=== PATIENT | female | born 1950 | race Caucasian/White ===

== ENCOUNTER 2024-11-15 10:24 | Outpatient (REF) | payer MEDICARE, SELFPAY ==
--- OUTSIDE RECORDS SUMMARY | 2024-11-15 11:50 | XMS_ITS | Encounter Summary ---
Author Organization [facility] Address [address] [place] [address] Care Team Providers Care Nurse Midwife Name Role Phone Unavailable Primary Care Provider Unavailabl e Reason for Visit * Reason Onset Date Comments Chart Prep 11/14/2024 Encounter Details Date Type Department Care Team (Late st Contact Info) Description 11/14/[address] [facility] [address] [place] [address] Sandy Mcguire MA Chart Prep Social History Tobacco Use Types Packs/Day Years Used Date Smoking Tobacco: Never Assessed Comments Unknown Sex and Gender Information Value Date Recorded Sex Assigned at Female 08/23/2024 11:52 AM EST Legal Sex Female 11:52 AM EST Gender Identity Female 08/23/2024 11:52 AM EST Sexual Orientation Don't know 11/14/2024 11 :01 AM EDT documented as of this encounter Miscellaneous Notes * Telephone Encounter - Sandy Mcguire MA - 11/14/2024 4:19 PM EDT Chart Prep Labs: not applicable Images: not applicable Vaccines due: yes Referrals: not applicable Screenings: not applicable Overdue care gaps: SBIRT, SDOH, PHQ-9, Oral health screening, Disability screen, and Tobacco documented in this encounter Plan of Treatment Upcoming Encounters Date Type Department Care Team (Late st Contact Info) Description 11/22/2024 2:00 PM EDT Clinical Support [facility] [address] [place] [address] documented as of this encounter Visit Diagnoses Not on filedocumented in this encounter
--- OUTSIDE RECORDS SUMMARY | 2024-11-15 11:50 | XMS_ITS | Clinical Summary ---
Author Organization [facility] [address] [place] [address] [place] [phone] Phone Care Team Providers Care Manager Of Employee Relations Name Role Phone Yonatan De Guzman MD Primary Care Provider [phone] Allergies Active Allergy Reactions Criticality Noted Date Comments Lisinopril 11/11/2009 Severe cough Nsaids (Non-Steroidal Anti-Inflammatory Drug) GI intolerance 01/26/2018 Medications albuterol HFA (PROAIR HFA ; PROVENTIL HFA ; VENTOLIN HFA) 90 mcg/actuation inhaler Inhale 1-2 Puffs into the lungs every 4 hours as needed for Cough, Wheezing or Shortness of Breath. 3 Active atorvastatin (LIPITOR) 20 mg tablet Take 1 tablet (20 mg total) by mouth 1 (one) time each day. 4 Active biotin-silicon qzkp-F-gxjzrffg 3,000 mcg -100 mg-50 mg tablet extended release Take 1 tablet by mouth 1 (one) time each day. Active calcium carbonate/vitamin D3 (CALCIUM 600 WITH VITAMIN D3 ORAL) Take 1 tablet by mouth 2 (two) times a day. Calcium Carb-Cholecalc iferol (Calcium 600/Vitamin D3) 600-20 MG-MCG Tab 0 09/24/2022 Sig - Route: Take 1 Tablet by mouth 2 times daily. - Oral Class: Historic 3 Active DULoxetine (CYMBALTA) [address] capsule Take 1 capsule (60 mg total) by mouth 1 (one) time each day. 4 Active losartan (COZAAR) 100 mg tablet Take 1 Tablet by mouth at bedtime. 4 Active hydrOXYzine HCL (ATARAX) 25 mg tablet Take 1 tablet (25 mg total) by mouth 3 (three) times a day if needed for anxiety. Active levothyroxine (SYNTHROID, LEVOTHROID) 100 mcg tablet TAKE 1 TABLET BY MOUTH EVERY DAY 90 tablet 1 5 Active amLODIPine (NORVASC) 10 mg tabletIndications :Essential (primary) hypertension TAKE 1 TABLET BY MOUTH EVERY DAY 90 tablet 5 Active atorvastatin (LIPITOR) 10 mg tablet TAKE 1 TABLET BY MOUTH EVERYDAY AT BEDTIME 90 tablet 5 Active Active Problems Problem Noted Date Diagnosed Date Diverticulosis 05/16/2024 IBS (irritable bowel syndrome) 05/16/2024 CKD (chronic kidney disease) stage 3, GFR 30-59 ml/min 02/07/2021 Obesity (BMI 30.0-34.9) 02/22/2020 Pulmonary nodule 11/03/2017 Overview (05/16/2024): CT Chest 12/06/17 done through [facility] showed stable nodules. F/u 1 year. Hypercholesteremia 06/21/2016 Overview (05/16/2024): - Has been intolerant to multiple different statins in the past - At her last visit with me in November 2021, we attempted a trial of low-dose Crestor 2.5 mg every other day- at some point, she stopped this - More recently, her primary started her on atorvastatin 10 mg which she appears to be tolerating - Ultimately, myalgias could be related to fibromyalgia which she has had for many years Last Assessment & Plan: Poorly controlled lipids by lipid panel in August of this year; thankfully she has been tolerating atorvastatin 10 mg; I have taken the liberty of increasing it further to 20 mg, will try to get her up to the highest dose tolerated capping at 80 mg if possible, she has a follow-up with her primary in February, I have given her a prescription for the 20 mg pill to get her through to this appointment-at that point, would consider increasing to 40 if tolerated by the patient, would repeat fasting lipid profile 2 to 3 months after the maximally tolerated statin dose Prediabetes 06/15/2016 Paraseptal emphysema 02/15/2015 Depression 01/29/2014 Osteopenia 08/15/2013 Overview (05/16/2024): T score -2.1 2013, no Rx Female cystocele 07/12/2013 Hearing loss 02/03/2013 Rotator cuff tendinitis 07/07/2012 Obstructive sleep apnea 12/05/2008 Overview (05/16/2024): NOT TREATED Essential hypertension, benign 05/25/2008 Overview (05/16/2024): Last Assessment & Plan: Suboptimally controlled in the office today, given that I increased her statin however I did not want to make too many medication changes, would consider adding an antihypertensive agent, as she is maxed out on both amlodipine and losartan, if still elevated at her next appointment with her PCP; I encouraged her to observe a low-sodium diet-less than 2000 mg daily, I also encouraged her to keep track of her blood pressures no more than 2-3 times a week in a resting state over the next several months and bring a log of these blood pressures to her next PCP appointment in February Fibromyalgia 03/09/2008 Overview (05/16/2024): Onset ~ 2005 Hypothyroid 03/09/2008 Immunizations Name Administration Dates Next Due Influenza trivalent, 0.5mL ( Fluzone High-dose) 65yo and older 06/19/2022,04/15/2021,05/07/2020,2018,05/09/2018,05/17/2017,04/20/2016,1 08/30/2012,08/18/2012 Influenza, Unspecified 05/09/2016 Moderna Covid-19 Bivalent, O riginal + Ba.1 (Non-US Tradename Spikevax Bivalent) 06/19/2022 Moderna SARS-CoV-2 COVID-19, mRNA, LNP-S, preservative free 07/11/2021 Pneumococcal conjugate 13 va lent (Prevnar 13, PCV13) 2mo and older 08/20/2021 Pneumococcal conjugate 20 va lent (Prevnar 20, PCV 20) 2mo and older 05/05/2023 Td Tetanus diptheria (Tdvax) 7yo and older 08/20/2021 Tdap Tetanus diptheria acell ular pertussis (Boostrix; Adacel) 7yo and older 03/01/2008 Zoster recombinant (Shingrix ) 19yo and older 07/30/2021 Surgical History Surgery Date Site/Laterality Comments HYSTERECTOMY 1998 PROCEDURE: HISTORICAL VAGINAL HYSTERECTOMY W/O BSO; COMMENT: fibroids ROTATOR CUFF REPAIR PROCEDURE: HISTORICAL ROTATOR CUFF REPAIR; COMMENT: right - surgery - 2011 OTHER SURGICAL HISTORY 04/17/2016 PROCEDURE: COLONOSCOPY, REMOVE LESION BREAST BIOPSY Bilateral PROCEDURE: BX BREAST; PERC NEEDLE CORE W/IMAG GUID; COMMENT: b9 BREAST SURGERY Left PROCEDURE: CO UNLISTED PROCEDURE BREAST; COMMENT: b9 14 yrs old Medical History Medical History Date Comments Fibromyalgia DX:Fibromyalgia Hypothyroid DX:Hypothyroid IBS (irritable bowel syndrome) D X:IBS (irritable bowel syndrome) Diverticulosis DX:Diverticulosi s Sleep apnea 12/05/2008 DX:Sleep apnea Hearing loss 02/03/2013 DX:Hearing loss Paraseptal emphysema (CMS/HCC) 02/15/2015 D X:Paraseptal emphysema (HCC) Family History Medical History Relation Name Comments No Known Problems Mother of co mplications of gangrene of the foot, not much known prior Thyroid disease Son Breast cancer Neg Hx Colon cancer Neg Hx Ovarian cancer Neg Hx Relation Name Status Comments Mother Son Alive Social History Tobacco Use Types Packs/Day Years Used Date Smoking Tobacco: Former Cigarettes 1 41.4 0 1962 - 08/09/2003 Smokeless Tobacco: Never Alcohol Use Standard Drinks/Week Comments Yes 0 (1 standard drink = 0.6 oz pur e alcohol) Comments Unknown Sex and Gender Information Value Date Recorded Sex Assigned at Not on file Legal Sex Female 5:39 AM EST Gender Identity Not on file Sexual Orientation Not on file Obstetrics History Last Filed Vital Signs Vital Sign Reading Time Taken Comments Blood Pressure 140/58 03/30/2024 4:45 PM EDT Pulse 70 03/28/2024 3:26 PM EDT Temperature - - Respiratory Rate - - Oxygen Saturation - - Inhaled Oxygen Concentration - - Weight 77.3 kg (170 lb 8 oz) 03/28/2024 3:26 PM EDT Height 157.5 cm (5' 2 ) 03/28/2024 3:26 PM EDT Body Mass Index 31.18 03/28/2024 3:26 PM EDT Plan of Treatment Upcoming Encounters Date Type Department Care Team (Late st Contact Info) Description 04/25/2025 3:00 PM EDT Appointment Radiology Department - [address] [phone] Health Maintenance Due Date Last Done Comments Depression Screening 07/18/2022 Falls Risk Assessment 07/18/2022 Medicare Annual Wellness Visit 07/18/2022 Social Influencers of Health Screening 07/18/2022 RSV Immunization Adult Patients (1 - 1-dose 75+ series) 2023 COVID-19 Vaccine ( season) 2024 06/19/2022, 07/11/2021, 12/31/2020, Additional history exists Hypertension/CHF/CAD Annual BMP Blood Test 03/07/2025 03/07/2024, 03/07/2024 Influenza Vaccine (Season Ended) 2025 06/19/2022, 04/15/2021, 05/07/2020, Additional history exists Cholesterol Screening (Lipid Panel) 03/07/2029 03/07/2024, 03/07/2024 Osteoporosis Screening (Bone Density Screening) 03/17/2031 03/17/2021, 05/04/2018 DTaP,Tdap,and Td Vaccines (3 - Td or Tdap) 08/20/2031 08/20/2021, 03/01/2008 Colorectal Cancer Screening: Colonoscopy 12/11/2031 12/10/2021 Hepatitis C Screening Completed 06/18/2016 Zoster Vaccines Completed 07/30/2021, 05/16/2021 Pneumococcal Vaccine: 50+ Years Completed 05/05/2023, 08/20/2021 Breast Cancer Screening Discontinued 05/04/20, 05/04/2024, 04/27/2024, Additional history exists HIB Vaccines Aged Out No longer eligi ble based on patient's age to complete this topic HPV Vaccines Aged Out No longer eligi ble based on patient's age to complete this topic Hepatitis A Vaccines Aged Out No long er eligible based on patient's age to complete this topic Hepatitis B Vaccines Aged Out No long er eligible based on patient's age to complete this topic IPV Vaccines Aged Out No longer eligi ble based on patient's age to complete this topic MMR Vaccines Aged Out No longer eligi ble based on patient's age to complete this topic Meningococcal ACWY Vaccine Aged Out N o longer eligible based on patient's age to complete this topic Meningococcal B Vaccine Aged Out No l onger eligible based on patient's age to complete this topic RSV Immunization Patients Under 20 months Aged Out No longer eligible based on patient's age to complete this topic Varicella Vaccines Aged Out No longer eligible based on patient's age to complete this topic Procedures Procedure Name Priority Date/Time Associated Diagnosis Comments DX MAMMO INCL CAD UNI Routine 05/04/2024 12:10 PM EDT Other abnormal and inconclusive findings on diagnostic imaging of breast ANNUAL BMP BLOOD TEST Routine 03/07/2024 LIPID PANEL Routine 03/07/2024 COLONOSCOPY Routine 12/10/2021 DXA BONE DENSITY STUDY 1+ SITS AXIAL SKEL Routine 03/17/2021 2:49 PM EDT Other specified disorders of bone density and structure, unspecified site HEPATITIS C SCREENING Routine 06/18/2016 from Last 3 Months or Most Recently Relevant to Health Maintenance Results * DX MAMMO INCL CAD UNI (05/04/2024 12:10 PM EDT) Anatomical Region Laterality Modality Mammography 04/27/2024 3:08 PM EDT Narrative 05/04/2024 1:31 PM EDT This is a summary report. The complete report is available in the patient's medical record. If you cannot access the medical record, please contact the sending organization for a detailed fax or copy. Please refer to the combined ultrasound-guided core biopsy and diagnostic mammogram report. Procedure Note Jovana Torres MD - 05/24/2024 This is a summary report. The complete report is available in thepatient's medical record. If you cannot access the medical record, pleasecontact the sending organization for a detailed fax or copy. Please refer to the combined ultrasound-guided core biopsy and diagnosticmammogram report. Yonatan De Guzman MD IMG BI PROCEDURES Final Result * Annual BMP Blood Test (03/07/2024) [facility] Annual BMP Blood Test abstracted Historical Provider [facility] Final Result * (ABNORMAL) Lipid panel (03/07/2024) [facility] LDL/HDL Ratio 4 0 - 4 Triglycerides 89 0 - 150 mg/dL Cholesterol 364(A) 0 - 200 mg/dL HDL 100 >=40 mg/dL LDL Cholesterol 247(A) 0 - 100 mg/dL Blood Venous blood specimen / Unknown Result [facility] Historical Provider LAB BLOOD ORDERABLES Mery l Result * Colonoscopy (12/10/2021) [facility] Colonoscopy abnormal, abstracted Anatomical Region Laterality Modality Other Result [facility] Provider [facility] Final Result * DXA BONE DENSITY STUDY 1+ SITS AXIAL SKEL (03/17/2021 2:49 PM EDT) Anatomical Region Laterality Modality Bone Densitometr y 05/14/2020 9:56 AM EDT Narrative 03/17/2021 7:14 PM EDT BONE DENSITY SCAN (DEXA): FINDINGS: Lumbar Spine T-score is -2.1. ?? (SD relative to 20-29 y/o adult) Z-score is 0.2. ??(SD relative to age matched peers) This is considered osteopenia by WHO criteria. Left Hip T-score is -0.9. Z-score is 1.1. This is considered normal by WHO criteria. Comparison exam(s): 05/04/2018 and 08/14/2013. Lumbar spine: 5.0% increase in bone mineral density compared with 2018, statistically significant at the 95% confidence level. ??No statistically significant change compared with the baseline exam. Left hip: No statistically significant change in bone mineral density compared with prior exams. IMPRESSION: IMPRESSION: Osteopenia by WHO criteria. This patient has a 13% risk of major osteoporotic fracture and a 1.8% risk of hip fracture over the next 10 years. (World Health Organization Fracture Risk Assessment) [facility] Department of Internal Medicine recommends using National Osteoporosis Foundation (NOF) guidelines in treatment decisions related to osteoporosis. NOF guidelines suggest considering treatment for postmenopausal women and men aged 50 or older presenting with the following: History of hip or vertebral fracture. T-score = -2.5 (DXA) at the femoral neck, total hip, or spine, after appropriate evaluation to exclude secondary causes. Low bone mass (T-score between -1.0 and -2.5 at the femoral neck or spine) AND a 10-year probability of a hip fracture = 3% OR a 10-year probability of a major osteoporosis-related fracture = 20% based on the [place]-adapted WHO algorithm Please note that all treatment decisions require clinical judgment and consideration of individual patient factors, including patient preferences, co-morbidities, previous drug use, risk factors not captured in the model (e.g., frailty, falls, vitamin D deficiency, increased bone turnover, interval significant decline in bone density) and possible under- or over-estimation of fracture risk by FRAX. Optional alternative screening schedule based on candido Guzmán., [facility] August 27, 2011 for patients with osteopenia (based on hip BMD T-score) is as follows: * ??advanced osteopenia (T scores -2.00 to -2.49), BMD testing every year * ??moderate osteopenia (T scores -1.50 to -1.99), BMD testing every 5 years mild osteopenia or normal BMD (T scores -1.50 and higher), BMD testing every 15 years Procedure Note Jovana Torres MD - 07/28/2022 BONE DENSITY SCAN (DEXA): FINDINGS: Lumbar Spine T-score is -2.1. (SD relative to 20-29 y/o adult) Z-score is 0.2. (SD relative to age matched peers) This is considered osteopenia by WHO criteria. Left Hip T-score is -0.9. Z-score is 1.1. This is considered normal by WHO criteria. Comparison exam(s): 05/04/2018 and 08/14/2013. Lumbar spine: 5.0% increase in bone mineral density compared with 2018,statistically significant at the 95% confidence level. No statistically significantchange compared with the baseline exam. Left hip: No statistically significant change in bone mineral densitycompared with prior exams. IMPRESSION: IMPRESSION: Osteopenia by WHO criteria. This patient has a 13% risk of majorosteoporotic fracture and a 1.8% risk of hip fracture over the next 10 years. (World HealthOrganization Fracture Risk Assessment) [facility] Department of Internal Medicine recommends usingUnc Health Pardeeional Osteoporosis Foundation (NOF) guidelines in treatment decisions related toosteoporosis. NOF guidelines suggest considering treatment for postmenopausal women and men aged 50 orolder presenting with the following: History of hip or vertebral fracture. T-score = -2.5 (DXA) at the femoral neck, total hip, or spine, afterappropriate evaluation to exclude secondary causes. Low bone mass (T-score between -1.0 and -2.5 at the femoral neck or spine)AND a 10-year probability of a hip fracture = 3% OR a 10-year probability of a majorosteoporosis-related fracture = 20% based on the [place]-adapted WHO algorithm Please note that all treatment decisions require clinical judgment andconsideration of individual patient factors, including patient preferences, co- morbidities,previous drug use, risk factors not captured in the model (e.g., frailty, falls, vitamin Ddeficiency, increased bone turnover, interval significant decline in bone density) and possibleunder- or over-estimation of fracture risk by FRAX. Optional alternative screening schedule based on kenji Guzmán al., NEJMJanuary 2011 for patients with osteopenia (based on hip BMD T-score) is as follows: * advanced osteopenia (T scores -2.00 to -2.49), BMD testing every year * moderate osteopenia (T scores -1.50 to -1.99), BMD testing every 5years mild osteopenia or normal BMD (T scores -1.50 and higher), BMD testingevery 15 years Marcy ADAMS IMG DXA PROCEDURES Final Result * Hepatitis C Screening (06/18/2016) Pathologist [facility] Hepatitis C Screening abstracted Historical Provider [facility]IN[facility] Final Result from Last 3 Months or Most Recently Relevant to Health Maintenance Insurance [employer]AGE Care Teams Manager Of Employee Relations Relationship Specialty Start Date End Date Yonatan De Guzman MD PCP - General 03/05/08
--- OUTSIDE RECORDS SUMMARY | 2024-11-15 11:50 | XMS_ITS | Encounter Summary ---
Author Organization [employer] Address [address] [place] [address] Care Team Providers Care Afloat Cryptologic Manager Name Role Phone Laine Urban MD Primary Care Provider [phone] Reason for Visit * Reason Comments Establish Care Encounter Details Date Type Department Care Team (Late st Contact Info) Description 11/15/2024 9:00 AM EDT Office Visit [facility] [address] [place], [place] [phone] Laine Urban MD [address] [place] [address] Primary hypertension (Primary Dx); Hypothyroidism, unspecified type; Depression, unspecified depression type Social History Tobacco Use Types Packs/Day Years Used Date Smoking Tobacco: Never Assessed Comments Unknown Sex and Gender Information Value Date Recorded Sex Assigned at Female 08/23/2024 11:52 AM EST Legal Sex Female 11:52 AM EST Gender Identity Female 08/23/2024 11:52 AM EST Sexual Orientation Don't know 11/14/2024 11 :01 AM EDT documented as of this encounter Last Filed Vital Signs Vital Sign Reading Time Taken Comments Blood Pressure 204/78 11/15/2024 9:00 AM EDT Pulse 68 11/15/2024 9:00 AM EDT Temperature 36.4 ??C (97.6 ??F) 11/15/2024 9:00 AM ED T Respiratory Rate 18 11/15/2024 9:00 AM EDT Oxygen Saturation 98% 11/15/2024 9:00 AM EDT Inhaled Oxygen Concentration - - Weight 72.4 kg (159 lb 9.6 oz) 11/15/2024 9:00 A M EDT Height 157.5 cm (5' 2 ) 11/15/2024 9:00 AM EDT Body Mass Index 29.19 11/15/2024 9:00 AM EDT documented in this encounter Progress Notes * Laine Urban MD - 11/15/2024 9:00 AM EDT Subjective Patient ID: Amairani Ruiz is a 74 y.o. female who presents for Establish Care. Hypertension This is a chronic problem. The current episode started more than 1 year ago. The problem has been gradually worsening since onset. The problem is uncontrolled. Pertinent negatives include no chest pain, headaches, neck pain, palpitations or shortness of breath. Risk factors for coronary artery disease include family history and sedentary lifestyle. Treatments tried: pt stopped taking all meds. Review of Systems Constitutional: Negative. Respiratory: Negative. Negative for shortness of breath. Cardiovascular: Negative for chest pain and palpitations. Gastrointestinal: Negative. Genitourinary: Negative. Musculoskeletal: Negative for neck pain. Neurological: Negative for headaches. Objective Physical Exam Constitutional: Appearance: Normal appearance. Cardiovascular: Rate and Rhythm: Normal rate and regular rhythm. Pulses: Normal pulses. Heart sounds: Normal heart sounds. Pulmonary: Effort: Pulmonary effort is normal. Abdominal: General: Abdomen is flat. Neurological: Mental Status: She is alert. Assessment/Plan Diagnoses and all orders for this visit: Primary hypertension Comments: pt given clonidine 0.1 in office Started On HCTZ 25mg Strongly advised to restarted on Losartan Pt is allergic to aspirin Maintain a low-sodium diet (less than 2 grams per day). Maintain a regular cardiovascular exercise program. Advised to maintain a low-fat, low-cholesterol diet. Counseled regarding importance of weight loss. Counseled re: potential co-morbidities including cardiovascular disease. Labs ordered today Orders: - Basic Metabolic Panel; Future - Lipid Panel, Standard; Future - Hepatic Function Panel; Future - cloNIDine (Catapres) tablet 0.1 mg Hypothyroidism, unspecified type Comments: Labs ordered Cont Levothyroxine Strongly advised med compliance Orders: - TSH with Reflex to Free T4; Future Depression, unspecified depression type Other orders - hydroCHLOROthiazide (HYDRODiuril) 25 MG tablet; Take 1 tablet (25 mg) by mouth Once per day. documented in this encounter Plan of Treatment Upcoming Encounters Date Type Department Care Team (Late st Contact Info) Description 11/22/2024 2:00 PM EDT Clinical Support [facility] [address] [place] [address] Scheduled Orders Name Type Priority Associated Diagnoses Orde r Schedule Basic Metabolic Panel Lab Routine Primary hypertension Expected: 11/15/2024 (Approximate), Expires: 11/15/2025 Lipid Panel, Standard Lab Routine Primary hypertension Expected: 11/15/2024 (Approximate), Expires: 11/15/2025 Hepatic Function Panel Lab Routine Primary hypertension Expected: 11/15/2024 (Approximate), Expires: 11/15/2025 TSH with Reflex to Free T4 Lab Routine Hypothyroidism, unspecified type Expected: 11/15/2024 (Approximate), Expires: 11/15/2025 documented as of this encounter Visit Diagnoses Diagnosis Primary hypertension- Primary Unspecified essential hypertension Hypothyroidism, unspecified type Depression, unspecified depression type documented in this encounter Administered Medications Inactive Administered Medications - up to 3 most recent administrations Medication Order MAR Action Action Date Dose Rate Site cloNIDine (Catapres) tablet 0.1 mg 0.1 mg, Oral, Once, On Wed11/15/24 at 0915, For 1 doseIndications:Primary hypertension Given 11/15/2024 9:15 AM EDT 0.1 mg documented in this encounter Care Teams Afloat Cryptologic Manager Relationship Specialty Start Date End Date Laine Urban MD [address] [facility] [place] [address] PCP - General Family Medicine 11/15/24 documented as of this encounter
--- OUTSIDE RECORDS SUMMARY | 2024-11-15 11:50 | XMS_ITS | Clinical Summary ---
Author Organization [employer] Address [address] [facility] [address] [place] [address] Care Team Providers Care Cupola Mechanic Name Role Phone Laine Urban MD Primary Care Provider [phone] Allergies Active Allergy Reactions Criticality Noted Date Comments Amlodipine Angioedema 11/15/2024 Aspirin Vomiting 11/15/2024 Medications DULoxetine (Cymbalta) [address] capsule Take 60 mg by mouth Once per day. 4 Active losartan (Cozaar) 100 MG tablet Take 1 tablet by mouth at bedtime. 4 Active levothyroxine (Synthroid, Levoxyl) 100 MCG tablet Take 100 mcg by mouth Once per day. 4 Active atorvastatin (Lipitor) 20 MG tablet Take 20 mg by mouth Once per day. 4 Active hydroCHLOROthia zide (HYDRODiuril) 25 MG tablet Take 1 tablet (25 mg) by mouth Once per day. 30 tablet 11 5 11/16/19 26 Active atorvastatin (Lipitor) 10 MG tablet Take 10 mg by mouth at bedtime. 4 11/16/19 25 Discontinued Hospital, Clinic, or Other Facility Administered Medication Ordered Dose Route Frequency Start Date End Date Status cloNIDine (Catapres) tablet 0.1 mgIndications:Primary hypertension 0.1 mg PO Once 11/15/2024 11/15/2024 Ended Active Problems Problem Noted Date Diagnosed Date Primary hypertension 11/15/2024 Overview (11/15/2024): Started On HCTZ Strongly advised to restarted on Losartan Pt is allergic to aspirin Hypothyroidism 11/15/2024 Overview (11/15/2024): Labs ordered Cont Levothyroxine Strongly advised med compliance Encounters Date Type Department Care Team Description 11/15/2024 9:00 AM EDT Office Visit [facility] [address] [place] [address] Laine Urban MD Primary hypertension (Primary Dx); Hypothyroidism, unspecified type; Depression, unspecified depression type 11/15/2024 Travel 11/14/2024 Telephone [facility] [address] [place] [address] Sandy Mcguire MA Chart Prep 11/07/2024 Patient Outreach [facility] [address] [place] [address] Laine Urban MD Pre-visit Planning (Pre visit planning unable to LVM ) 08/23/2024 Telephone [facility] [address] [place] [address] Angelo Watts MD New patient request from Last 3 Months Immunizations Name Administration Dates Next Due Influenza High-dose Quadriva lent Preservative Free 06/19/2022,04/15/2021,05/07/2020 Influenza, High Dose Seasona l, Preservative Free 06/19/2022,04/15/2021,05/07/2020,2018,05/09/2018,05/17/2017,04/20/2016,1 08/30/2012,08/18/2012 Influenza, IIV3, injectable 06/30/2013, 3 Influenza, Unspecified 05/09/2016 Pneumococcal Conjugate PCV 13 08/20/2021 Pneumococcal Conjugate PCV 20 05/05/2023 TD (adult), 2 Lf tetanus tox oid, preservative free, adsorbed 08/20/2021 Tdap 03/01/2008 Zoster, Recombinant 07/30/2021,05/16/2021 Social History Tobacco Use Types Packs/Day Years Used Date Smoking Tobacco: Never Assessed Comments Unknown Sex and Gender Information Value Date Recorded Sex Assigned at Female 08/23/2024 11:52 AM EST Legal Sex Female 11:52 AM EST Gender Identity Female 08/23/2024 11:52 AM EST Sexual Orientation Don't know 11/14/2024 11 :01 AM EDT Last Filed Vital Signs Vital Sign Reading [...] Mass Index 29.19 11/15/2024 9:00 AM EDT Plan of Treatment Upcoming Encounters Date Type Department Care Team (Late st Contact Info) Description 11/22/2024 2:00 PM EDT Clinical Support [facility] [address] [place] [address] Health Maintenance Due Date Last Done Comments Depression Screening 1948 Lipid Panel 1948 SDOH Screening 1948 Tobacco Screening 1960 Hepatitis C Screening 1966 RSV Patients and Patients Aged 60 years or older (1 - 1-dose 75+ series) 2023 COVID-19 Vaccine ( - season) 2024 06/19/2022, 07/11/2021, 12/31/2020, Additional history exists Influenza Vaccine (#1) 2024 2, 06/19/2022, 04/15/2021, Additional history exists Alcohol/Substance Use Screening 11/15/2025 11/15/2024 DTaP/Tdap/Td Vaccines (3 - Td or Tdap) 08/20/2031 08/20/2021, 03/01/2008 Zoster Vaccines Completed 07/30/2021, 05/16/2021 Pneumococcal Vaccine: 50+ Years Completed 05/05/2023, 08/20/2021 HIB Vaccines Aged Out No longer eligi [...] patient's age to complete this topic Meningococcal Vaccine Aged Out No stefani martell eligible based on patient's age to complete this topic RSV under 20 months Aged Out No longe r eligible based on patient's age to complete this topic Rotavirus Vaccines Aged Out No longer eligible based on patient's age to complete this topic Insurance [employer] MEDICARE REPLACEMENT Care Teams Cupola Mechanic Relationship Specialty Start Date End Date Laine Urban MD [address] [place] [id number] PCP - General Family Medicine 11/15/24
--- OUTSIDE RECORDS SUMMARY | 2024-11-15 11:50 | XMS_ITS | Encounter Summary ---
Author Organization [employer] Address [address] [facility] [address] [place] [address] Care Team Providers Care Rail Splitter Name Role Phone Laine Urban MD Primary Care Provider [phone] Encounter Details Date Type Department Care Team (Latest Contact Info) Description 11/15/2024 Travel Social History Tobacco Use Types Packs/Day Years Used Date Smoking Tobacco: Never Assessed Comments Unknown Sex and Gender Information Value Date Recorded Sex Assigned at Female 08/23/2024 11:52 AM EST Legal Sex Female 11:52 AM EST Gender Identity Female 08/23/2024 11:52 AM EST Sexual Orientation Don't know 11/14/2024 11 :01 AM EDT documented as of this encounter Plan of Treatment Upcoming Encounters Date Type Department Care Team (Late st Contact Info) Description 11/22/2024 2:00 PM EDT Clinical Support [facility] [address] [place] [address] documented as of this encounter Visit Diagnoses Not on filedocumented in this encounter Care Teams Rail Splitter Relationship Specialty Start Date End Date Laine Urban MD [address] [place] [address] PCP - General Family Medicine 11/15/24 documented as of this encounter
--- OUTSIDE RECORDS SUMMARY | 2024-11-15 11:50 | XMS_ITS | Clinical Summary ---
Author Organization [facility] Address [address] [facility] [address] [place] [address] Phone Care Team Providers Care Automatic Machine Attendant Name Role Phone Yonatan De Guzman MD Primary Care Provider [phone] Allergies Active Allergy Reactions Criticality Noted Date Comments Lisinopril 11/11/2009 Severe cough Nsaids GI intolerance 01/26/2018 Medications docusate sodium (COLACE) 100 MG capsule Take by mouth 1 (one) time each day 4 Active doxycycline (VIBRAMYCIN) 100 MG capsule Take 100 mg by mouth in the morning and 100 mg in the evening. 4 Active DULoxetine (CYMBALTA) [address] capsule TAKE 1 CAPSULE BY MOUTH DAILY FOR 14 DAYS. THEN INCREASE TO ONE 60 MG CAPSULE DAILY. 4 Active gabapentin (NEURONTIN) 100 MG capsule TAKE 2 CAPSULE BY MOUTH EVERY 6 HOURS FOR 7 DAYS 4 Active levothyroxine (SYNTHROID, LEVOTHROID) 100 MCG tablet Take 100 mcg by mouth 1 (one) time each day 4 Active oxyCODONE (ROXICODONE) 5 MG immediate release tablet Take 5 mg by mouth every 6 (six) hours if needed for moderate pain 4 Active albuterol HFA (PROVENTIL HFA;VENTOLIN HFA) 108 (90 Base) MCG/ACT inhaler Inhale 1-2 Puffs into the lungs every 4 hours as needed for Cough, Wheezing or Shortness of Breath. 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 05/22/2024 Family History Medical History Relation Comments Breast cancer Neg Hx Colon cancer Neg Hx Ovarian cancer Neg Hx Social History Tobacco Use Types Packs/Day Years Used Date Smoking Tobacco: Former Cigarettes Smokeless Tobacco: Never Tobacco Cessation:Counseling Given: Not Answered Alcohol Use Standard Drinks/Week Comments Yes 0 (1 standard drink = 0.6 oz pur e alcohol) Comments Unknown Sex and Gender Information Value Date Recorded Sex Assigned at Not on file Legal Sex Female 9:28 PM EDT Gender Identity Not on file Sexual Orientation Not on file Last Filed Vital Signs Vital Sign Reading Time Taken Comments Blood Pressure 123/65 06/09/2024 11:17 AM EDT Pulse 64 06/09/2024 11:17 AM EDT Temperature - - Respiratory Rate - - Oxygen Saturation - - Inhaled Oxygen Concentration - - Weight 74.4 kg (164 lb) 06/09/2024 11:17 AM EDT Height - - Body Mass Index - - Plan of Treatment Upcoming Encounters Date Type Department Care Team (Late st Contact Info) Description 12/07/2024 2:00 PM EDT Office Visit [facility] [address] [phone] Kali Vance MD [address] [phone] Health Maintenance Due Date Last Done Comments Pneumococcal Vaccine: 65+ Years (2 of 2 - PPSV23 or PCV20) 10/15/2021 08/20/2021 Influenza Vaccine (Season Ended) 2025 06/19/2022, 04/15/2021, 05/07/2020, Additional history exists Hepatitis B Vaccine Aged Out No longe r eligible based on patient's age to complete this topic Insurance [facility] MEDICARE AET MEDICARE Care Teams Automatic Machine Attendant Relationship Specialty Start Date End Date Yonatan De Guzman MD [address] [place] [id number] PCP - General Internal Medicine 04/05/24
[2024-11-15 15:17] LABS: Alanine Aminotransferase 15 U/L (0-31); Alkaline Phosphatase 111 U/L (39-117); Anion Gap 8 (12-20); Aspartate Amino Transferase 27 U/L (5-31); Bilirubin Direct 0.4 mg/dL (0.0-0.5); Bilirubin Total 1.1 mg/dL (0.0-1.0); Blood Urea Nitrogen 16 mg/dL (9-16); Calcium 9.6 mg/dL (8.4-10.2); Carbon Dioxide 29 mmol/L (22-29); Chloride 108 mmol/L (96-108); Cholesterol 266 mg/dL (<200); Estimated Glomerular Filt Rate 55; Glucose Random 94 mg/dL (60-115); HDL Cholesterol 93 mg/dL (>40); LDL Cholesterol Calculated 160 mg/dL (<100); Potassium 3.5 mmol/L (3.3-5.1); Sodium 141 mmol/L (135-145); Total Protein 6.8 g/dL (6.5-8.0); Triglycerides 65 mg/dL (<150)
[2024-11-15 15:35] LABS: TSH reflex Free T4 0.79 uIU/mL (0.32-4.0)
== END 2024-11-15 10:25 | disposition home or self-care (01) ==
LOC: HO.CHCLDS 10:24
PROVIDERS: Visit Provider Student in an Organized Health Care Education/Training Program
DX: I10 Essential (primary) hypertension (principal); E03.9 Hypothyroidism, unspecified
CPT/HCPCS: 36415; 80048; 80061; 80076; 84443